=== PATIENT | female | born 1980 | race Caucasian/White ===

== ENCOUNTER 2016-06-07 19:40 | Inpatient (IN) | payer BC ==
[~2016-06-07 19:40] MED LIST: DOCO200C PO; FERR140T PO
[2016-06-07] MEDS ORDERED: LACTATED RINGER'S 1000 ML INJ 1,000 ML IV ONE (21:00)
[2016-06-07] MEDS: ONDANSETRON HCL 4 MG/2 ML VIAL IV PUSH PRN (21:05)
[2016-06-07] MEDS: LACTATED RINGER'S 1000 ML INJ 1,000 ML IV SCH (21:06)
[2016-06-07 21:27] LABS: BASOPHIL % 0.2 % (0.0-2.0); EOSINOPHIL % 0.1 % (0.0-4.0); HEMATOCRIT 42.9 % (35.0-46.0); HEMO FLAGS DIFF FINAL; LYMPH % 5.7 % (9.0-44.0); LYMPHOCYTE # 0.6 TH/MM3 (1.0-4.8); MEAN CELL VOLUME 84.6 FL (80.0-100.0); MEAN CORPUSCULAR HEMOGLOBIN 27.3 PG (27.0-34.0); MEAN CORPUSCULAR HGB CONC 32.3 % (32.0-36.0); MONO % 3.7 % (0.0-8.0); NEUT % 90.3 % (16.0-70.0); PLATELET COUNT 161 TH/MM3 (150-450); RED BLOOD COUNT 5.07 MIL/MM3 (4.00-5.30); RED CELL DISTRIBUTION WIDTH 17.1 % (11.6-17.2)
[2016-06-07] MEDS ORDERED: TERBUTALINE INJ 1 MG/ML AMP SQ ONE (22:00)
[2016-06-07 22:02] LABS: BACTERIA, URINE FEW /hpf; BLOOD, URINE NEG (NEG); GLUCOSE,URINE NEG (NEG); HYALINE CAST, URINE 1 /lpf (RARE); KETONE, URINE 150 mg/dL (NEG); MUCUS URINE FEW /lpf (OCC); NITRITE,URINE NEG (NEG); PH, URINE 5.5 (5.0-8.5); SQUAMOUS EPITHELIAL CELL URINE 3 /hpf (0-5); URINE COLOR YELLOW (YELLW/STRAW)
[2016-06-07 22:03] LABS: COMMENT (UR) CULT NOT INDICATED; CULTURE IF INDICATED CULT NOT INDICATED
[2016-06-07 22:45] LABS: ALKALINE PHOSPHATASE 114 U/L (45-117); ALT (GPT) 21 U/L (10-53); AMYLASE 81 U/L (25-115); ANION GAP 14 MEQ/L (5-15); AST (GOT) 24 U/L (15-37); BICARBONATE 19.6 MEQ/L (21.0-32.0); BLOOD UREA NITROGEN 12 MG/DL (7-18); CHLORIDE 104 MEQ/L (98-107); GLOMERULAR FILTRATION RATE 93 ML/MIN (>89); POTASSIUM 3.7 MEQ/L (3.5-5.1); SODIUM (NA) 138 MEQ/L (136-145); TOTAL BILIRUBIN ADULT 0.5 MG/DL (0.2-1.0)
[2016-06-07] MEDS ORDERED: ZOLPIDEM TARTRATE 5 MG TAB PO PRN (23:30)
[2016-06-07] MEDS ORDERED: ACETAMINOPHEN 325 MG TAB PO PRN (23:30)
[2016-06-08] VITALS (34 sets, daily range): BP systolic 83–102; BP diastolic 50–81; PULSE 69–126; RESP 16–18; TEMP 97.3–98; O2SAT 98
[2016-06-08] MEDS: LACTATED RINGER'S 1000 ML INJ 1,000 ML IV SCH ×4 (00:32→18:00)
[2016-06-08] MEDS: ONDANSETRON HCL 4 MG/2 ML VIAL IV PUSH PRN (06:08)
[2016-06-08] MEDS ORDERED: fentaNYL 2MCG-BUPIV 0.125% INJ 100 ML ONE (06:58)
[2016-06-08] MEDS: LACTATED RINGER'S 1000 ML IV SCH ×2 (07:15→23:15)
[2016-06-08] MEDS ORDERED: LIDOCAINE HCL 1% 50 ML VIAL INFIL PRN (07:15)
[2016-06-08] MEDS ORDERED: LIDOCAINE HCL 1% 50 ML VIAL I-DERMAL PRN (07:15)
[2016-06-08] MEDS ORDERED: CITRIC ACID-SODIUM CITRATE LIQ 30 ML UDC PO SCH (07:15)
[2016-06-08] MEDS ORDERED: MINERAL OIL 10 ML VIAL TOP PRN (07:15)
[2016-06-08] MEDS ORDERED: NS 1000 ML IV PRN (07:15)
[2016-06-08] MEDS ORDERED: NS 500 ML BOLUS IV PRN (07:15)
[2016-06-08] MEDS ORDERED: LACTATED RINGER'S 1000 ML BOLUS IV PRN (07:15)
[2016-06-08] MEDS ORDERED: OXYTOCIN 30 UNITS 500ML PREMIX IV ONE (07:15)
[2016-06-08] MEDS ORDERED: ePHEDrine/NS 25 MG/5 ML SYR ONE (07:30)
[2016-06-08] MEDS ORDERED: IBUPROFEN 600 MG TAB PO PRN (09:00)
[2016-06-08] MEDS: SODIUM CHLORIDE 0.9% FLUSH 5 ML FLUSH IV SCH ×2 (09:00→21:00)
[2016-06-08] MEDS ORDERED: oxyCODONE/ACETAMINOPHEN 5 MG/325 MG TAB PO PRN ×2 (09:00)
[2016-06-08] MEDS ORDERED: ZOLPIDEM TARTRATE 5 MG TAB PO PRN (09:00)
[2016-06-08] MEDS ORDERED: BENZOCAINE 20% TOPICAL SPRAY 60 ML CAN TOPICAL PRN (09:00)
[2016-06-08] MEDS ORDERED: ALUMINUM/MAGNESIUM/SIMETH 30 ML CUP PO PRN (09:00)
[2016-06-08] MEDS ORDERED: ACETAMINOPHEN 325 MG TAB PO PRN (09:00)
[2016-06-08] MEDS ORDERED: WITCH HAZEL 50%/GLYCERIN 12.5% 40 PAD JAR TOPICAL PRN (09:00)
[2016-06-08] MEDS ORDERED: SODIUM CHLORIDE 0.9% FLUSH 5 ML FLUSH IV PRN (09:00)
[2016-06-08] MEDS ORDERED: ONDANSETRON ODT 4 MG TAB PO PRN (09:00)
[2016-06-08 09:14] LABS: AMPHETAMINE, URINE NEG (NEG); BARBITURATES, URINE NEG (NEG); COCAINE, URINE NEG (NEG)
[2016-06-08] MEDS ORDERED: DIPHTH/TETANUS/ACEL PERTUSSIS (BOOSTER) 0.5 ML VIAL/PFS IM ONE (16:00)
[2016-06-08] MEDS ORDERED: MEASLES, MUMPS, RUBELLA VACCINE 0.5 ML VIAL SQ ONE (16:00)
[2016-06-08] MEDS: DOCUSATE SODIUM 50 MG/SENNA 8.6 MG TAB PO PRN (17:57)
[2016-06-09] MEDS: LACTATED RINGER'S 1000 ML INJ 1,000 ML IV SCH ×3 (00:40→14:00)
[2016-06-09 06:10] LABS: AUTOMATED NEUTROPHIL # 6.3 TH/MM3 (1.8-7.7); BASOPHIL % 0.3 % (0.0-2.0); EOSINOPHIL # 0.1 TH/MM3 (0-0.4); EOSINOPHIL % 1.2 % (0.0-4.0); HEMATOCRIT 30.3 % (35.0-46.0); HEMO FLAGS DIFF FINAL; LYMPHOCYTE # 2.3 TH/MM3 (1.0-4.8); MEAN CELL VOLUME 83.9 FL (80.0-100.0); MEAN CORPUSCULAR HEMOGLOBIN 27.9 PG (27.0-34.0); MEAN CORPUSCULAR HGB CONC 33.3 % (32.0-36.0); MONO % 9.5 % (0.0-8.0); PLATELET COUNT 163 TH/MM3 (150-450); RED BLOOD COUNT 3.62 MIL/MM3 (4.00-5.30); RED CELL DISTRIBUTION WIDTH 17.3 % (11.6-17.2); WHITE BLOOD COUNT 9.6 TH/MM3 (4.0-11.0)
[2016-06-09] MEDS: LACTATED RINGER'S 1000 ML IV SCH ×2 (07:15→15:15)
--- NOTE | 2016-06-09 08:41 | MH ---
cc: MAXIMO GONZALEZ DATE OF ADMISSION: 06/08/2016 ADMISSION DIAGNOSIS at 36 weeks with gastroenteritis and dehydration. HISTORY OF PRESENT ILLNESS The patient is a 35-year-old -[place] female para 1-0-1-1 with an EDC of 07/02/2016 by early ultrasound. She reported her daughter had a gastroenteritis type infection on 06/05/16. Her contracted the illness the next day. She was having some queasiness yesterday with a decreased intake of fluid and food but awoke this morning at 3:30 a.m. with severe nausea and vomiting which has been sustained throughout the day. She tried Zofran without relief. She reports no fever, no diarrhea. She had normal BM yesterday, no vaginal bleeding or membrane rupture. She was feeling abdominal cramps and advised to come in for evaluation. PAST MEDICAL HISTORY/PREVIOUS SURGERY None except D&C for miscarriage 2013. ALLERGIES None. OBSTETRICAL HISTORY Previous term delivery. Hospitalization for facial cellulitis. MEDICATIONS Vitamins SOCIAL HISTORY She is . She is employed. 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 Alcohol, tobacco and drug are none. PHYSICAL EXAMINATION GENERAL: She is a well-nourished, petite female. HEENT: Exam is normal. CHEST: Chest HEART: Regular rate. BREASTS: Large with ABDOMEN: Gravid, nontender. PELVIC: Cervix long, thick and closed. EXTREMITIES: normal. ASSESSMENT As above. PLAN She is now admitted for IV hydration, antiemetic therapy, labor evaluation. We Will keep in hospital until able to tolerate p.o. fluids well and when stable, discharge home. MD CORRINE Cortes/ /8:58 PM /8:36 AM JAY
--- NOTE | 2016-06-09 08:50 | HHI.DCPOC ---
Discharge Care Plan Report Symptoms to Your Doctor -Temperate above 100.5 degrees -Redness, of incision or excessive or foul smelling drainage -Unusual pain or calf pain -Increased vaginal bleeding -Painful or difficulty urinating -Feelings of extreme sadness or anxiety after 2 weeks Goals to Promote Your Health * To prevent worsening of your condition and complications * To maintain your health at the optimal level Directions to Meet Your Goals Take your medications as prescribed Follow your dietary instruction Follow activity as directed Ensure plenty of rest for recovery Drink fluids for hydration Keep your appointments as scheduled Take your immunizations and boosters as scheduled If your symptoms worsen call your PCP, if no PCP go to Urgent Care Center or Emergency Room Smoking is Dangerous to Your Health. Avoid second hand smoke Call the 24-hour crisis hotline for domestic abuse at Kirit Johns MD Jun 09, 2016 08:50
[2016-06-09] MEDS: SODIUM CHLORIDE 0.9% FLUSH 5 ML FLUSH IV SCH (09:00)
[2016-06-09] MEDS: DOCUSATE SODIUM 50 MG/SENNA 8.6 MG TAB PO PRN (09:01)
--- NOTE | 2016-06-09 09:09 | MD ---
cc: MAXIMO GONZALEZ ADMISSION DATE: 06/08/2016 DISCHARGE DATE: 06/09/2016 [facility] Visit Search.Discharge Date ADMITTING DIAGNOSIS 1. at 36/37 weeks. 2. Advanced terminal age of 35. 3. Gastroenteritis. DISCHARGE DIAGNOSIS 1. at 36/37 weeks. 2. Advanced terminal age of 35. 3. Gastroenteritis. 4. Delivered. HISTORY OF PRESENT ILLNESS A 35-year-old female, para 1-0-1-1 with an EDC of 07/02/2016, was admitted on 07/05/2016 with a history of gastroenteritis since about 4:30 a.m. that day with persistent nausea and vomiting. HOSPITAL COURSE She received IV fluid hydration, antiemetic therapy and continued with uterine contractions. She was given terbutaline and fentanyl and continued to contract. She went on to develop active labor and received epidural anesthesia on the morning of 06/08/2016 and rapidly progressed to a spontaneous vaginal delivery over an intact perineum, a viable vigorous male, Apgars 9 and 9, weight 4 pounds 9 ounces. The baby is named Merlin and she was breast feeding. she did very well and she and the baby were discharged home on 06/09/2016. She is advised NPV, light activity, return to see me in six weeks. We will arrange circumcision when the baby has gained another pound. She will call the office for any abnormal symptoms. MD CORRINE Cortes/JOSE ALFREDO /8:55 AM /9:05 AM
[2016-06-12 12:46] LABS: PHENCYCLIDINE URINE NEG (NEG)
[2016-06-12 12:47] LABS: ECSTASY (MDMA) UR NEG (NEG); HEROIN (6-ACETYLMORPHINE) UR NEG (NEG); OBMETHADONE UR NEG (NEG)
[2016-06-12 12:48] LABS: BATH SALTS (MDPV) UR NEG (NEG); K2 SPICE UR NEG (NEG); OXYCODONE (PERCODAN) NEG (NEG)
== END 2016-06-09 16:08 | disposition home or self-care (01) | DRG 775 ==
LOC: HOBED 19:40 → H2EA 22:58 → UNDOADMOB 22:58 → OBSVTOIN 06-08 06:37 → INTOOBSV 06-08 06:37 → H2EB 06-08 06:37 → H1EA 06-08 12:20
PROVIDERS: ADMIT Obstetrics & Gynecology; ATTEND Obstetrics & Gynecology
PROC: 10E0XZZ Delivery of Products of Conception, External Approach (ICD-10-PCS; principal; 2016-06-08)
DX: O99.62 Diseases of the digestive system complicating childbirth (principal); E86.0 Dehydration; O47.03 False labor before 37 completed weeks of gestation, third trimester; Z37.0 Single live birth; Z3A.36 36 weeks gestation of pregnancy
CPT/HCPCS: 76816; 76818; 76820; 76821; 80053; 80307; 81001; 82150; 83690; 85025; 86850; 86900; 86901; 88307; 96361; 96372; 96374; G0481; J2405; J3010; J3105; J7120

== ENCOUNTER → 2017-07-16 | Outpatient (CLI) | payer BC ==
--- NOTE | 2017-07-17 11:14 | RSPPFT ---
DATE OF PROCEDURE: 07/16/17 COMMENTS: Spirometry with FVC of 2.9 predicted 2.9, FEV1 of 2.3 predicted 2.5, FEV1/FVC ratio at 80% predicted 86%. Some change is noticed post-bronchodilator at the level of the "small airways" with the FEF 25-75 improving from 2.2 to 2.9. Mild air trapping is present with RV at 1.6 predicted 1.3. DLCO is within the predicted range. IMPRESSION:
== END ==
LOC: HRSP 12:18
PROVIDERS: ATTEND Internal Medicine Pulmonary Disease
DX: R05 Cough (principal)
CPT/HCPCS: 94060; 94618; 94726; 94729